=== PATIENT | female | born 1930 | race Caucasian/White ===

== ENCOUNTER 2017-05-15 10:31 | Day surgery (SDC) | payer OTHER, MEDICARE ==
[2017-05-14 15:33] VITALS: BMI 22.3
[2017-05-15 11:23] VITALS: TEMP 97.7
[2017-05-15] MEDS ORDERED: LIDOCAINE HCL/PF 1% SDV 5ML VIAL ONE (11:28)
[2017-05-15] MEDS ORDERED: LIDOCAINE VISCOUS 2% ORAL/TOP 20 ML UNIT-DOSE CUP ONE (11:34)
[2017-05-15] MEDS ORDERED: LABETALOL HCL 5 MG/1 ML (100MG/20 ML VIAL) ONE (11:49)
--- NOTE | 2017-05-15 12:26 | PROC ---
Cardioversion Risks and Benefits Explained: Yes Consent on Chart: Yes KATARZYNA done prior to Cardioversion: Yes KATARZYNA findings: No intracardiac thrombus Patient anticoagulated: Yes - Procedure Anesthesiologist present: Yes Medication given: propofol Joules delivered: 120x1 Rhythm post cardioversion: sr Remarks: Pt tolerated procedure well, no complications.
[2017-05-15 13:26] VITALS: BP 121/69; PULSE 64
--- NOTE | 2017-05-15 16:23 | EKG ---
Test Reason : Blood Pressure : / mmHG Vent. Rate : 066 BPM Atrial Rate : 066 BPM P-R Int : 156 ms QRS Dur : 092 ms QT Int : 432 ms P-R-T Axes : 096 051 071 degrees QTc Int : 452 ms NORMAL SINUS RHYTHM POSSIBLE LEFT ATRIAL ENLARGEMENT INCOMPLETE RIGHT BUNDLE BRANCH BLOCK BORDERLINE ECG WHEN COMPARED WITH ECG OF 13-OCT-2014 09:17, SINUS RHYTHM HAS REPLACED ATRIAL FIBRILLATION VENT. RATE HAS DECREASED BY 55 BPM QUESTIONABLE CHANGE IN QRS AXIS Confirmed by SAURABH RIDLEY MD ([id number]) on 05/15/2017 4:22:58 PM Referred By: Troy Valentine Confirmed By:SAURABH RIDLEY MD
== END 2017-05-15 13:26 | disposition home or self-care (01) ==
LOC: JASU-SURG 10:31 → JASU-ENDO 10:31
PROVIDERS: ATTEND Internal Medicine Cardiovascular Disease
PROC: 5A2204Z Restoration of Cardiac Rhythm, Single (ICD-10-PCS; 2017-05-15)
PROC: B246ZZ4 Ultrasonography of Right and Left Heart, Transesophageal (ICD-10-PCS; principal; 2017-05-15 11:30)
DX: I48.1 Persistent atrial fibrillation (principal)
CPT/HCPCS: 92960; 93005; 93010; 93312